=== PATIENT | female | born 1995 | race Hispanic/Latino ===

== ENCOUNTER 2016-06-21 12:03 | Emergency (ER) | payer MEDICAID ==
[2016-06-21 12:21] VITALS: BP 138/83; PULSE 90; RESP 16; TEMP 98.3; O2SAT 100
--- NOTE | 2016-06-21 12:27 | ED PDOC ---
Arrival/HPI - General Chief Complaint: Abnormal Skin Integrity Time Seen by Provider: 06/21/16 12:19 Historian: Patient - History of Present Illness Narrative History of Present Illness (Text): 06/21/16 12:24 21yo female present with over a week history of pruritic rash. States she was seen by her PMD twice for the rash and given 2different creams without relieve. Denies any new inciting factors. Denies drooling, SOB, chest pain, stridor, any other complaint. Past Medical History - Provider Review Nursing Documentation Reviewed: Yes - Cardiac Hx Cardiac Disorders: No - Pulmonary Hx Respiratory Disorders: No - Neurological Hx Neurological Disorder: No - HEENT Hx HEENT Disorder: No - Renal Hx Renal Disorder: No - Endocrine/Metabolic Hx Endocrine Disorders: No - Hematological/Oncological Hx Blood Disorders: No - Integumentary Hx Dermatological Disorder: No - Musculoskeletal/Rheumatological Hx Musculoskeletal Disorders: No - Gastrointestinal Hx Gastrointestinal Disorders: No - Genitourinary/Gynecological Hx Genitourinary Disorders: Yes Other/Comment: OVARIAN CYST - Psychiatric Hx Psychophysiologic Disorder: No Hx Substance Use: No - Surgical History Hx Tonsillectomy: Yes Family/Social History - Physician Review Nursing Documentation Reviewed: Yes Family/Social History: Unknown Family HX Smoking Status: Never Smoked Hx Alcohol Use: Yes Frequency of alcohol use: Socially Hx Substance Use: No Allergies/Home Meds Allergies/Adverse Reactions: Allergies No Known Allergies Allergy (Verified 06/21/16 12:15) Home Medications: Home Meds Medication Instructions Recorded Confirmed Norgestimate-Ethinyl Estradiol 1 tab PO DAILY 06/21/16 06/21/16 [Sprintec 28 Day Tablet] Review of Systems - Physician Review All systems were reviewed & negative as marked: Yes - Review of Systems Constitutional: Normal Eyes: Normal ENT: Normal Respiratory: Normal Cardiovascular: Normal Gastrointestinal: Normal Genitourinary Female: Normal Musculoskeletal: Normal Skin: Rash, Pruritis Neurological: Normal Endocrine: Normal Hemo/Lymphatic: Normal Psychiatric: Normal Physical Exam Vital Signs Reviewed: Yes Vital Signs Temp Pulse Resp BP Pulse Ox 06/21/16 12:19 98.3 F 90 16 138/83 100 Temperature: Afebrile Blood Pressure: Normal Pulse: Regular Respiratory Rate: Normal Appearance: Positive for: Well-Appearing, Non-Toxic, Comfortable Pain Distress: None Mental Status: Positive for: Alert and Oriented X 3 - Systems Exam Head: Present: Atraumatic, Normocephalic Pupils: Present: PERRL Extroacular Muscles: Present: EOMI Conjunctiva: Present: Normal Mouth: Present: Moist Mucous Membranes Neck: Present: Normal Range of Motion Respiratory/Chest: Present: Clear to Auscultation, Good Air Exchange. No: Respiratory Distress, Accessory Muscle Use Cardiovascular: Present: Regular Rate and Rhythm, Normal S1, S2. No: Murmurs Abdomen: Present: Normal Bowel Sounds. No: Tenderness, Distention, Peritoneal Signs Back: Present: Normal Inspection Upper Extremity: Present: Normal Inspection. No: Cyanosis, Edema Lower Extremity: Present: Normal Inspection. No: Edema Neurological: Present: GCS=15, CN II-XII Intact, Speech Normal Skin: Present: Warm, Dry, Rashes (Erythematous papules noted around the neck), Normal Color Psychiatric: Present: Alert, Oriented x 3, Normal Insight, Normal Concentration Disposition/Present on Arrival - Present on Arrival Any Indicators Present on Arrival: No History of DVT/PE: No History of Uncontrolled Diabetes: No Urinary Catheter: No History of Decub. Ulcer: No History Surgical Site Infection Following: None - Disposition Have Diagnosis and Disposition been Completed?: Yes Diagnosis: Contact dermatitis Disposition: HOME/ ROUTINE Disposition Time: 12:30 Patient Plan: Discharge Condition: STABLE Discharge Instructions (ExitCare): Dermatitis (ED) Additional Instructions: Follow up with an physical chemist/[employer] Supervisor Return to ED for any new or worsening symptoms Prescriptions: DiphenhydrAMINE [Benadryl] 25 mg PO Q4 #30 cap Famotidine [Pepcid] 20 mg PO DAILY #9 tab predniSONE [Prednisone] 20 mg PO DAILY #3 tab Referrals: Roya Mosqueda MD [Staff Provider] - Follow up with primary
== END 2016-06-21 12:45 | disposition home or self-care (01) ==
LOC: ED 12:03
DX: L25.9 Unspecified contact dermatitis, unspecified cause (principal)

== ENCOUNTER 2017-09-28 15:14 | Emergency (ER) | payer MEDICAID ==
[2017-09-28 15:46] VITALS: RESP 18
[2017-09-28] MEDS ORDERED: Sodium Chloride 0.9% 1,000 ML IV STA (16:35)
[2017-09-28 18:06] LABS: BASO # 0.02 K/mm3 (0.0-2.0); BASO % 0.2 % (0.0-3.0); EOS # 0.2 (0.0-0.7); EOS % 1.5 % (1.5-5.0); GRAN # 7.4 (1.4-6.5); GRAN % 64.6 % (50.0-68.0); HEMOGLOBIN 13.4 g/dL (12.0-16.0); LYMPH # 2.7 (1.2-3.4); LYMPH % 23.3 % (22.0-35.0); MEAN CELL VOLUME 84.7 fl (80.0-105.0); MEAN CORPUSCULAR HEMOGLOBIN 29.8 pg (25.0-35.0); MEAN CORPUSCULAR HGB CONC 35.2 g/dl (31.0-37.0); MEAN PLATELET VOLUME 9.8 fl (7.0-11.0); MONO # 1.2 (0.1-0.6); MONO % 10.4 % (1.0-6.0); PH,URINE 6.5 (4.7-8.0); RBC 4.5 10^6/uL (3.5-6.1); RED CELL DISTRIBUTION WIDTH 12.7 % (11.5-14.5); URINE BILIRUBIN NEGATIVE (NEGATIVE); URINE BLOOD NEGATIVE (NEGATIVE); URINE GLUCOSE (UA) NEGATIVE (NEGATIVE); URINE LEUKOCYTE ESTERASE TRACE Leu/uL (NEGATIVE); URINE PROTEIN TRACE mg/dL (<30 mg/dL); URINE UROBILINOGEN 0.2 E.U./dL (<1 E.U./dL); WHITE BLOOD COUNT 11.4 10^3/ul (4.5-11.0)
[2017-09-28 18:08] LABS: URINE APPEARANCE CLEAR (CLEAR); URINE COLOR LIGHT YELLOW (YELLOW)
[2017-09-28 18:10] LABS: ALB/GLOB RATIO 1.3 (1.1-1.8); ALBUMIN 4.4 g/dL (3.0-4.8); ALT/SGPT 32 U/L (7-56); AST/SGOT 31 U/L (14-36); BLOOD UREA NITROGEN 9 mg/dL (7-21); CALCIUM 9.6 mg/dL (8.4-10.5); GFR AFRICAN-AMERICAN > 60; GFR NON-AFRICAN AMERICAN > 60; LIPASE 49 U/L (23-300)
[2017-09-28 18:18] LABS: URINE WBC 0 - 2 /hpf (0-6)
[2017-09-28] MEDS ORDERED: Iohexol 350 MG/100 ML VIAL ONE (18:18)
[2017-09-28 18:19] LABS: URINE BACTERIA SMALL (NEG)
--- NOTE | 2017-09-28 18:49 | CT ---
Date of service: 09/28/2017 PROCEDURE: CT Abdomen and Pelvis with contrast HISTORY: Periumbilical and right lower quadrant tenderness. Negative test (concurrent with this examination). COMPARISON: None TECHNIQUE: Contrast dose: 100 cc Omnipaque 350. Radiation dose: Total exam DLP = 765.31 mGy-cm. This CT exam was performed using one or more of the following dose reduction techniques: Automated exposure control, adjustment of the mA and/or kV according to patient size, and/or use of iterative reconstruction technique. FINDINGS: LOWER THORAX: Unremarkable. LIVER: Unremarkable. No gross lesion or ductal dilatation. GALLBLADDER AND BILE DUCTS: Unremarkable. PANCREAS: Unremarkable. No gross lesion or ductal dilatation. SPLEEN: Unremarkable. ADRENALS: Unremarkable. No mass. KIDNEYS AND URETERS: Unremarkable. No hydronephrosis. No solid mass. VASCULATURE: Unremarkable. No aortic aneurysm. BOWEL: Unremarkable. No obstruction. No gross mural thickening. APPENDIX: A normal appendix is visualized. PERITONEUM: Unremarkable. No free fluid. No free air. LYMPH NODES: Unremarkable. No enlarged lymph nodes. BLADDER: Unremarkable. REPRODUCTIVE: Pelvic cyst of left the midline likely adnexal in origin measuring 3.8 x 5.0 cm. BONES: No acute fracture. OTHER FINDINGS: None. IMPRESSION: Unremarkable appendix, colon and small bowel. Left adnexal cysts.
--- NOTE | 2017-09-28 20:02 | ED PDOC ---
Arrival/HPI - General Chief Complaint: Abdominal Pain Time Seen by Provider: 09/28/17 16:35 Historian: Patient - History of Present Illness Narrative History of Present Illness (Text): 09/28/17 19:56 22yr old female presents today with a 3 day history of periumbilical pain. pt c/ o nausea no vomiting. no cp or sob. no vomiting/diarrhea. no urinary symptoms. no vaginal discharge. no back pain. no dizziness or weakness. no changes in appetite. pt denies fevers. Symptom Onset: Gradual Symptom Course: Unchanged Quality: Aching Severity Level: 5 Past Medical History - Provider Review Nursing Documentation Reviewed: Yes - Travel History Have you recently traveled outside [place] w/in the past 3 mons?: No - Infectious Disease Hx of Infectious Diseases: None - Tetanus Immunization Tetanus Immunization: Unknown - Reproductive Menopause: No - Cardiac Hx Cardiac Disorders: No - Pulmonary Hx Respiratory Disorders: No - Neurological Hx Neurological Disorder: No - HEENT Hx HEENT Disorder: No - Renal Hx Renal Disorder: No - Endocrine/Metabolic Hx Endocrine Disorders: No - Hematological/Oncological Hx Blood Disorders: No - Integumentary Hx Dermatological Disorder: No - Musculoskeletal/Rheumatological Hx Musculoskeletal Disorders: No - Gastrointestinal Hx Gastrointestinal Disorders: No Hx Gastroesophageal Reflux: Yes - Genitourinary/Gynecological Hx Genitourinary Disorders: Yes Other/Comment: OVARIAN CYST - Psychiatric Hx Psychophysiologic Disorder: No Hx Substance Use: No - Surgical History Hx Tonsillectomy: Yes - Anesthesia Hx Anesthesia: Yes Hx Anesthesia Reactions: No Family/Social History - Physician Review Nursing Documentation Reviewed: Yes Family/Social History: Unknown Family HX Smoking Status: Never Smoked Hx Alcohol Use: Yes Frequency of alcohol use: Socially Hx Substance Use: No Allergies/Home Meds Allergies/Adverse Reactions: Allergies No Known Allergies Allergy (Verified 06/21/16 12:15) Home Medications: Home Meds Medication Instructions Recorded Confirmed Control 09/28/17 Review of Systems - Review of Systems Constitutional: Fevers. absent: Fatigue Respiratory: absent: SOB, Cough Cardiovascular: absent: Chest Pain, Palpitations Gastrointestinal: Abdominal Pain, Nausea. absent: Constipation, Vomiting Genitourinary Female: absent: Dysuria, Frequency, Hematuria, Vaginal Bleeding, Vaginal Discharge Musculoskeletal: absent: Arthralgias, Back Pain, Neck Pain Skin: absent: Rash, Pruritis Neurological: absent: Headache, Dizziness Psychiatric: absent: Anxiety, Depression Physical Exam Vital Signs Reviewed: Yes Vital Signs Temp Pulse Resp BP Pulse Ox 09/28/17 18:59 98.4 F 85 18 112/71 100 09/28/17 15:42 98.4 F 102 H 18 128/76 98 Temperature: Afebrile Blood Pressure: Normal Pulse: Tachycardic Respiratory Rate: Normal Appearance: Positive for: Well-Appearing, Non-Toxic, Comfortable Pain Distress: None Mental Status: Positive for: Alert and Oriented X 3 - Systems Exam Head: Present: Atraumatic Mouth: Present: Moist Mucous Membranes Neck: Present: Normal Range of Motion Respiratory/Chest: Present: Clear to Auscultation, Good Air Exchange. No: Respiratory Distress, Accessory Muscle Use Cardiovascular: Present: Regular Rate and Rhythm, Normal S1, S2. No: Murmurs Abdomen: Present: Tenderness (+ periumbilical tenderness, suprapubic tenderness and right and left lower abdominal tenderness. ). No: Distention, Peritoneal Signs, Rebound, Guarding Genitourinary/Pelvic Exam: Present: Normal External Genitalia, Vaginal Discharge (small amount of white vaginal discharge), Cervical os Closed, Other ( chaparoned by ER MARIO ALBERTO ordonez). No: Vaginal Bleeding, Vaginal Lesions, Adenexal Tenderness, Adenexal Mass, Cervical Motion Tendernes, Odor Back: Present: Normal Inspection. No: CVA Tenderness, Midline Tenderness, Paraspinal Tenderness Upper Extremity: Present: Normal ROM Lower Extremity: Present: Normal ROM Neurological: Present: GCS=15, Speech Normal Skin: Present: Warm, Dry Psychiatric: Present: Alert, Oriented x 3 Medical Decision Making ED Course and Treatment: 09/28/17 20:08 Patient is nontoxic well appearing with stable vital signs presenting with lower abdominal pain CBC wnl CMP wnl Lipase wnl Urinalysis + leukocytes, + blood CAT scan:FINDINGS: LOWER THORAX: Unremarkable. LIVER: Unremarkable. No gross lesion or ductal dilatation. GALLBLADDER AND BILE DUCTS: Unremarkable. PANCREAS: Unremarkable. No gross lesion or ductal dilatation. SPLEEN: Unremarkable. ADRENALS: Unremarkable. No mass. KIDNEYS AND URETERS: Unremarkable. No hydronephrosis. No solid mass. VASCULATURE: Unremarkable. No aortic aneurysm. BOWEL: Unremarkable. No obstruction. No gross mural thickening. APPENDIX: A normal appendix is visualized. PERITONEUM: Unremarkable. No free fluid. No free air. LYMPH NODES: Unremarkable. No enlarged lymph nodes. BLADDER: Unremarkable. REPRODUCTIVE: Pelvic cyst of left the midline likely adnexal in origin measuring 3.8 x 5.0 cm. BONES: No acute fracture. OTHER FINDINGS: None. IMPRESSION: Unremarkable appendix, colon and small bowel. Left adnexal cysts. gc/chlamdyia pending; pt does not want prophylactic treatment for STDs and she states she gets checked regularly and so does her partner. Patient reassessment: pt is non toxic well appearing; no distress. stable vitals. Discussed all results with patient in depth Advised follow-up with the chopper gun operator primary care physician and ENT specialist within the next 2 days. Advised taking Motrin every 6 hours as needed for pain. Advised Keflex for urinary tract infection. Advised immediate return if symptoms worsen persist or if new concerning symptoms develop Patient verbalizes understanding of discharge instructions and need for immediate followup. all aspects of this case were discussed the attending of record. Impression: Abdominal pain, ovarian cyst, uti Motrin every 6 hours as needed for pain keflex; 1 capsule twice daily x 7 days. Follow up with primary care physician within the next 2 days Follow up with the FENCE INSTALLER within the next 2 days. Follow up with the GI specialist within the next 2 days. Return immediately if symptoms worsen persist or if new symptoms develop: High fevers, increasing pain, vomiting, diarrhea or any other concerning symptoms develop Reassessment Condition: Re-examined, Improved - Lab Interpretations Lab Results: 09/28/17 17:45 09/28/17 17:45 Lab Results 09/28/17 17:45: WBC 11.4 H, RBC 4.50, Hgb 13.4, Hct 38.1, MCV 84.7, MCH 29.8, MCHC 35.2, RDW 12.7, Plt Count 266, MPV 9.8, Gran % 64.6, Lymph % (Auto) 23.3, [place] % (Auto) 10.4 H, Eos % (Auto) 1.5, Baso % (Auto) 0.2, Gran # 7.40 H, Lymph # (Auto) 2.7, [place] # (Auto) 1.2 H, Eos # (Auto) 0.2, Baso # (Auto) 0.02 09/28/17 17:45: Sodium 141, Potassium 3.8, Chloride 104, Carbon Dioxide 26, Anion Gap 15, BUN 9, Creatinine 0.5 L, Est GFR ( Amer) > 60, Est GFR (Non -Af Amer) > 60, Random Glucose 84, Calcium 9.6, Total Bilirubin 0.5, AST 31, ALT 32, Alkaline Phosphatase 79, Total Protein 7.8, Albumin 4.4, Globulin 3.4, Albumin/Globulin Ratio 1.3, Lipase 49 09/28/17 17:45: Urine Color Light yellow, Urine Appearance Clear, Urine pH 6.5, Ur Specific [place] <= 1.005, Urine Protein Trace H, Urine Glucose (UA) Negative , Urine Ketones Negative, Urine Blood Negative, Urine Nitrate Negative, Urine Bilirubin Negative, Urine Urobilinogen 0.2, Ur Leukocyte Esterase Trace H, Urine RBC 5 - 10, Urine WBC 0 - 2, Ur Epithelial Cells 1 - 3, Urine Bacteria Small - RAD Interpretation Radiology Orders: 09/28/17 16:42 ABD & PELVIS IV CONTRAST ONLY [CT] Stat - Medication Orders Current Medication Orders: Discontinued Medications Sodium Chloride (Sodium Chloride 0.9%) 1,000 mls @ 999 mls/hr IV .Q1H1M STA Stop: 09/28/17 17:35 Last Admin: 09/28/17 17:51 Dose: 999 mls/hr eMAR Start Stop Document 09/28/17 17:51 (Rec: 09/28/17 17:51 [email or web address]) Intravenous Solution Start Date 09/28/17 Start Time 17:51 Ketorolac Tromethamine (Toradol) 30 mg IVP STAT STA Stop: 09/28/17 16:44 Last Admin: 09/28/17 17:51 Dose: 30 mg MAR Pain Assessment Document 09/28/17 17:51 (Rec: 09/28/17 17:51 [email or web address]) Pain Reassessment Is this a pain reassessment? No Sleep Is patient sleeping during reassessment? No Presence of Pain Presence of Pain Yes Pain Scale Used Pain Scale Used Numeric IVP Administration Document 09/28/17 17:51 (Rec: 09/28/17 17:51 [email or web address]) Charges for Administration # of IVP Administrations 1 Disposition/Present on Arrival - Present on Arrival Any Indicators Present on Arrival: No History of DVT/PE: No History of Uncontrolled Diabetes: No Urinary Catheter: No History of Decub. Ulcer: No History Surgical Site Infection Following: None - Disposition Have Diagnosis and Disposition been Completed?: Yes Diagnosis: Abdominal pain, Urinary tract infection, Ovarian cyst Disposition: HOME/ ROUTINE Disposition Time: 20:20 Patient Plan: Discharge Condition: GOOD Discharge Instructions (ExitCare): Asymptomatic Bacteriuria, Acute Abdomen ( Belly Pain), Adult (DC), Ovarian Cyst (DC) Additional Instructions: Motrin every 6 hours as needed for pain keflex; 1 capsule twice daily x 7 days. Follow up with primary care physician within the next 2 days Follow up with the FENCE INSTALLER within the next 2 days. Follow up with the GI specialist within the next 2 days. Return immediately if symptoms worsen persist or if new symptoms develop: High fevers, increasing pain, vomiting, diarrhea or any other concerning symptoms develop Prescriptions: Cephalexin [Keflex] 500 mg PO BID #14 capsule Referrals: Fiona Talbert MD [Primary Care Provider] - Follow up with primary Panchito Shah MD [Staff Provider] - Follow up with primary Ernesto Diallo DO [Staff Provider] - [facility] - Follow up with primary Forms: [employer] (Spanish), WORK NOTE
[2017-09-28 20:30] VITALS: BP 128/77; PULSE 75; TEMP 98.3; O2SAT 99
== END 2017-09-28 20:42 | disposition home or self-care (01) ==
LOC: ED 15:14
DX: R10.33 Periumbilical pain (principal); N39.0 Urinary tract infection, site not specified; N83.209 Unspecified ovarian cyst, unspecified side
CPT/HCPCS: 74177; 80053; 81001; 83690; 85025; 87086; 87491; 87591; 96374; 99284; J1885; J7030; Q9967